=== PATIENT | female | born 1945 | race Two or more races ===

== ENCOUNTER 2019-02-22 06:00 | Day surgery (SDC) | payer OTHER ==
[~2019-02-22 06:00] MED LIST: COSOPT PF EYE1 EACH OPHT; GLIMEPIRIDE2 MG PO; NABUMETONE750 MG PO
[2019-02-22] MEDS ORDERED: CEFADROXIL500 MG PO (14:43)
[2019-02-22] MEDS ORDERED: ALEVE220 M1 PO (14:43)
[2019-02-22] MEDS ORDERED: ULTRACET PO (14:43)
== END 2019-02-22 17:00 | disposition home or self-care (01) ==
LOC: CIR.AMB 06:00
DX: S52.532A Colles' fracture of left radius, initial encounter for closed fracture (principal); S52.392A Other fracture of shaft of radius, left arm, initial encounter for closed fracture; M81.0 Age-related osteoporosis without current pathological fracture
CPT/HCPCS: 25609; 25652; C1776; 20902

== ENCOUNTER 2019-06-05 14:08 | Emergency (ER) | payer OTHER ==
[~2019-06-05] VITALS: Ht 160 cm; Wt 61.2 kg
[~2019-06-05 14:08] MED LIST changes: +ALEVE220 M1 PO; +CEFADROXIL500 MG PO; +ULTRACET PO
== END 2019-06-05 20:35 | disposition home or self-care (01) ==
LOC: ER 14:08
DX: N28.1 Cyst of kidney, acquired (principal); R10.12 Left upper quadrant pain

== ENCOUNTER 2025-03-31 14:01 | Inpatient (IN) | payer OTHER ==
[~2025-03-31] VITALS: Ht 157.5 cm; Wt 51.3 kg
[2025-03-31] MEDS ORDERED: NEURONTIN300 MG (14:25)
[2025-03-31] MEDS ORDERED: FAMOTIDINE/PF 20 MG/2 ML VIAL IV ONE (15:00)
[2025-03-31] MEDS ORDERED: ONDANSETRON HCL 2 MG/ML VIAL IV ONE (15:00)
[2025-03-31] MEDS ORDERED: 0.9 % SODIUM CHLORIDE 500 ML IV ONE (15:15)
[2025-03-31 15:43] LABS: BASO % 0.6 % (0.1-1.2); EOS # 0.17 (0.04-0.54); EOS % 1.9 % (0.7-7.0); LYMPH # 2.28 (1.18-3.74); LYMPH % 25.2 % (19.3-53.1); MEAN PLATELET VOLUME 10.60 fl (9.4-12.4); MONO # 0.73 (0.24-0.82); MONO % 8.1 % (4.7-12.5); NEUT # 5.78 (1.56-6.13); NEUT % 64.0 % (34.0-71.1); RED CELL DISTRIBUTION WIDTH 13.7 % (11.6-14.4)
[2025-03-31 15:59] LABS: INR 1.06
[2025-03-31 16:04] LABS: COVID-19 AG NEGATIVE (NEGATIVE)
[2025-03-31 16:08] LABS: ALT/SGPT 19.0 U/L (12-78); AST/SGOT 19.0 U/L (15-37); BILIRUBIN TOTAL 0.86 mg/dL (0.3-1.2); BUN CREA RATIO 18.0 (7.0-25.0); CREATININE SERUM 0.77 mg/dL (0.55-1.02); GFR 72.69; GLOBULINA 3.4 G/DL (2.4-3.5); GLUCOSE FASTING 157.0 mg/dL (65-100); OSMOLALITY SERUM 283.0 MOSM/KG (275-295)
[2025-03-31 16:20] LABS: URINE APPEARANCE Clear; URINE BILIRRUBIN Negative (NEGATIVE); URINE BLOOD Negative; URINE COLOR Yellow; URINE GLUCOSE Negative (NEGATIVE); URINE KETONE Trace (NEGATIVE); URINE LEUKOCYTE Negative; URINE NITRATE Negative; URINE PROTEIN Negative (NEGATIVE); URINE UROBILINOGEN 0.2 E.U./dl
[2025-03-31 16:24] LABS: URINE BACTERIA 2309.8 uL (0.0-1933); URINE EPITHELIAL CELLS 79.3 uL (0.0-38.8); URINE RBC 11.1 uL (0.0-20.8); URINE WBC 9.3 uL (0.0-23.2)
[2025-03-31 16:46] LABS: URINE CAST 0.00 uL (0.0-1.40)
[2025-03-31] MEDS ORDERED: MECLIZINE HCL 25 MG TABLET PO ONE (18:00)
[2025-03-31] MEDS ORDERED: 0.9 % SODIUM CHLORIDE 1,000 ML IV SCH (18:15)
[2025-03-31] MEDS ORDERED: ASPIRIN 81 MG TAB.CHEW PO SCH (18:19)
[2025-03-31] MEDS ORDERED: ATORVASTATIN CALCIUM 40 MG TABLET PO SCH (18:19)
[2025-03-31] MEDS ORDERED: FAMOTIDINE/PF 20 MG in 0.9 % SODIUM CHLORIDE 8 ML IV PUSH SCH (18:19)
[2025-03-31] MEDS ORDERED: INSULIN LISPRO 1,000 UNIT/10 ML UNITS SUBCUTANEO PRN (18:30)
[2025-03-31] MEDS ORDERED: DEXTROSE 50 % IN WATER 0.5 G/ML DISP.SYRIN IV PRN (18:30)
[2025-03-31] MEDS ORDERED: ONDANSETRON HCL 4 MG in 0.9 % SODIUM CHLORIDE 50 ML IV PRN (18:30)
[2025-03-31] MEDS ORDERED: ACETAMINOPHEN 500 MG GEL..CAP PO PRN (18:30)
[2025-03-31] MEDS ORDERED: MECLIZINE HCL 25 MG TABLET PO PRN (18:30)
[2025-03-31] MEDS ORDERED: PROMETHAZINE HCL 25 MG/ML AMPUL IV ONE (18:45)
[2025-03-31 18:56] VITALS: BP 200/80
[2025-03-31] MEDS ORDERED: ENALAPRILAT DIHYDRATE 2.5 MG/2 ML VIAL IV ONE (19:00)
[2025-03-31 20:11] VITALS: BP 148/60
[2025-03-31 22:10] VITALS: BP 130/55; O2SAT 97
[2025-04-01 03:08] VITALS: BP 101/59; O2SAT 98
[2025-04-01 08:20] LABS: CHOL HDL RATIO 4.0 (0-5.0); HDL 44.0 mg/dl (40-60); LDL 108.0 mg/dl (0-130); TSH 1.4 uIU/mL (0.358-3.74); VLDL 24.0 (0-39)
[2025-04-01] MEDS ORDERED: GABAPENTIN 100 MG CAPSULE PO SCH (09:00)
[2025-04-01 10:37] VITALS: BP 129/58; O2SAT 98
[2025-04-01 17:37] VITALS: BP 177/51; O2SAT 99
[2025-04-02 02:39] VITALS: BP 136/61; O2SAT 98
[2025-04-02 10:17] VITALS: BP 152/80; O2SAT 97
[2025-04-02 17:56] VITALS: BP 163/57; O2SAT 96
[2025-04-02] MEDS ORDERED: LOSARTAN POTASSIUM 25 MG TABLET PO SCH (19:30)
[2025-04-02] MEDS ORDERED: DOCUSATE SODIUM 100MG CAP PO SCH (21:00)
[2025-04-03 03:15] VITALS: BP 182/65; O2SAT 99
[2025-04-03 09:18] VITALS: BP 154/66; O2SAT 100
[2025-04-03 18:30] VITALS: BP 160/65; O2SAT 100
[2025-04-04 01:24] VITALS: BP 176/50; O2SAT 97
[2025-04-04 08:49] VITALS: BP 150/57; O2SAT 100
== END 2025-04-04 10:37 | disposition home or self-care (01) | DRG 65 ==
LOC: ER 14:01 → MEDJ 19:06
PROVIDERS: Emergency Medicine; General Practice; ADMIT Student in an Organized Health Care Education/Training Program; ATTEND Student in an Organized Health Care Education/Training Program
PROC: BW28ZZZ Computerized Tomography (CT Scan) of Head (ICD-10-PCS; principal; 2025-03-31)
PROC: B030ZZZ Magnetic Resonance Imaging (MRI) of Brain (ICD-10-PCS; 2025-03-31)
PROC: B345ZZZ Ultrasonography of Bilateral Common Carotid Arteries (ICD-10-PCS; 2025-03-31)
PROC: B24BYZZ Ultrasonography of Heart with Aorta using Other Contrast (ICD-10-PCS; 2025-03-31)
DX: I63.9 Cerebral infarction, unspecified (principal); G45.9 Transient cerebral ischemic attack, unspecified; R42 Dizziness and giddiness
CPT/HCPCS: 70551